=== PATIENT | male | born 1955 | race Caucasian/White ===

== ENCOUNTER 2022-01-19 17:14 | Inpatient (IN) | payer OTHER, SELFPAY ==
[~2022-01-19 17:14] MED LIST: Iopamidol-370 76% 500 ML 1 ML ONE
[2022-01-19 18:24] LABS: Acetaminophen Less than 10.0 mcg/mL (10.0-30.0); Alcohol Less than 10 mg/dL (Less than 10); Lipase 23 U/L (8-78); Salicylate Less than 8.0 mg/dL (15.0-30.0)
[2022-01-19 18:26] LABS: Hemoglobin 9.6 g/dL (14.0-18.0); Mean Corpuscular HGB CONC 31.8 g/dL (32.0-36.0); Mean Corpuscular Hemoglobin 32.9 pg (27.0-31.0); Mean Platelet Volume 10.4 fL (7.4-10.4); Platelet Count 104 thou/uL (130-400); RBC Distribution Width 18.6 % (11.5-14.5); Red Blood Cell (RBC) Count 2.92 mill/uL (4.70-6.10)
[2022-01-19 18:33] LABS: MDiff Complete? YES
[2022-01-19 18:34] LABS: Albumin 1.7 g/dL (3.4-4.8); Anisocytosis SLIGHT = 6-15 cells (100X) (0-5/hpf); Band 8 % (5-11); Lymphocytes 9 % (21-51); Macrocytosis SLIGHT = 6-15 cells (100X) (0-5/hpf); Monocytes 2 % (0-10); Neutrophil 81 % (42-75); Platelet Morphology Comment Appears Decreased; Polychromasia SLIGHT = 2-3 cells (100X) (0-2/hpf)
[2022-01-19 18:35] LABS: Calcium 8.9 mg/dL (7.8-10.44); Chloride 98 mmol/L (98-107); Potassium 4.6 mmol/L (3.5-5.1); Sodium 139 mmol/L (136-145)
[2022-01-19 18:36] LABS: Globulin 9.9 g/dL (2.4-3.5); Glucose 99 mg/dL (80-115); Protein, Total 11.6 g/dL (5.8-8.1)
[2022-01-19 18:37] LABS: Anion Gap 21 mmol/L (10-20); Carbon Dioxide 25 mmol/L (23-31)
[2022-01-19 18:38] LABS: Bilirubin, Total 0.7 mg/dL (0.2-1.2)
[2022-01-19 18:39] LABS: Alkaline Phosphatase 88 U/L (40-110); Calc. Creatinine Clearance 0 mL/min (70-130)
[2022-01-19 18:40] LABS: BUN (Urea Nitrogen) 34 mg/dL (8.4-25.7)
[2022-01-19 18:41] LABS: AST (SGOT) 24 U/L (5-34)
[2022-01-19 18:42] LABS: ALT (SGPT) 11 U/L (8-55)
[2022-01-19 19:02] LABS: CKMB 13.1 ng/mL (0-6.6)
[2022-01-19] MEDS ORDERED: Vancomycin 1 GM/200 ML BAG ONE (19:15)
[2022-01-19] MEDS ORDERED: Cefepime 2 GM VIAL ONE (19:15)
[2022-01-19 19:19] LABS: Bilirubin Negative (Negative); Blood, Urine 1+ (Negative); Clarity Turbid (Clear); Glucose, Urine (Dipstick) Normal (Negative); Ketone, Urine Negative (Negative); Leukocyte Negative Leu/uL (Negative); Mucous/LPF Rare LPF (<2+); Nitrite Negative (Negative); Protein, Urine (Dipstick) 50 mg/dL (Neg-Trace); Renal Epithelial 0-3 HPF (None Seen); Squamous Epithelial None Seen HPF (0-3)
[2022-01-19 19:23] LABS: Amphetamine Not Detected (NotDetected); Barbiturates Screen Not Detected (NotDetected); Benzodiazepine Screen Not Detected (NotDetected); Cocaine Metabolite Screen Not Detected (NotDetected); Methadone Not Detected (NotDetected); Methamphetamine Not Detected (NotDetected); Opiate Screen Not Detected (NotDetected); Oxycodone Screen Not Detected (NotDetected); Phencyclidine (PCP) Not Detected (NotDetected); THC/Cannabinoid Screen Detected (NotDetected); Tricyclic Screen Not Detected (NotDetected)
[2022-01-19 19:30] LABS: Bacteria/HPF 2+ HPF (None Seen)
[2022-01-19 21:06] LABS: Lactic Acid 1.7 mmol/L (0.5-2.2)
[2022-01-20 00:41] VITALS: BMI 16.7
[2022-01-20] MEDS ORDERED: Sodium Chloride 0.9% 1,000 ML IV SCH (02:45)
[2022-01-20] MEDS ORDERED: Ondansetron ODT 4 MG TAB PO PRN (07:34)
[2022-01-20] MEDS ORDERED: Senokot S 8.6-50 MG TAB PO PRN (07:34)
[2022-01-20] MEDS ORDERED: Bisacodyl 5 MG TAB PO PRN (07:34)
[2022-01-20] MEDS ORDERED: Bisacodyl 10 MG SUPP PR PRN (07:34)
[2022-01-20 08:41] LABS: Actual Bicarbonate (HCO3v) 28 mEq/L (22-28); Base Excess 3.2 mEq/L (-2.0 to +3.0); Calcium, Ionized (venous) 1.12 mmol/L (1.16-1.32); Chloride (VBG) 103 mmol/L (98-106); Potassium (VBG) 4.26 mmol/L (3.70-5.30); Sodium 143.2 mmol/L (133-146); pH (venous) 7.44 (7.32-7.43)
[2022-01-20 08:46] LABS: Hemoglobin A1c 5.6 % (4.0-6.0)
[2022-01-20 08:49] LABS: INR-International Normal Ratio 1.5; PTT 43.3 sec (22.9-36.1); Prothrombin Time 18.4 sec (12.0-14.7)
[2022-01-20 08:55] LABS: #Lymphocytes 0.7 thou/uL (1.20-3.40); #Monocytes 0.2 thou/uL (0.11-0.59); %Basophils 0.5 % (0.0-1.0); %Eosinophils 0.1 % (0.0-10.0); %Lymphocytes 13.7 % (21.0-51.0); %Monocytes 3.7 % (0.0-10.0); Anisocytosis SLIGHT = 6-15 cells (100X) (0-5/hpf); Band 4 % (5-11); Hemoglobin 9.5 g/dL (14.0-18.0); Hypochromia SLIGHT = 6-15 cells (100X) (0-5/hpf); Lymphocytes 14 % (21-51); MDiff Complete? YES; Macrocytosis SLIGHT = 6-15 cells (100X) (0-5/hpf); Mean Corpuscular Hemoglobin 32.9 pg (27.0-31.0); Mean Platelet Volume 10.4 fL (7.4-10.4); Monocytes 3 % (0-10); Neutrophil 79 % (42-75); Platelet Count 105 thou/uL (130-400); Platelet Morphology Comment Appears Decreased; Polychromasia SLIGHT = 2-3 cells (100X) (0-2/hpf); RBC Distribution Width 18.4 % (11.5-14.5); Target Cells SLIGHT = 2-5 cells (100X) (0-1/hpf); White Blood Cell (WBC) Count 4.8 thou/uL (4.8-10.8)
[2022-01-20] MEDS ORDERED: Cefepime 2 GM in Sodium Chloride 0.9% 100 ML IVPB SCH (09:00)
[2022-01-20 09:26] LABS: Vitamin B12 719 pg/mL (211-911)
[2022-01-20 09:29] LABS: ALT (SGPT) 10 U/L (8-55); AST (SGOT) 24 U/L (5-34); Albumin 1.7 g/dL (3.4-4.8); Anion Gap 22 mmol/L (10-20); BUN (Urea Nitrogen) 33 mg/dL (8.4-25.7); Calc. Creatinine Clearance 59 mL/min (70-130); Carbon Dioxide 23 mmol/L (23-31); Chloride 100 mmol/L (98-107); Globulin 10.1 g/dL (2.4-3.5); Glucose 71 mg/dL (80-115); Magnesium 1.9 mg/dL (1.6-2.6); Potassium 4.3 mmol/L (3.5-5.1); Protein, Total 11.8 g/dL (5.8-8.1); Sodium 141 mmol/L (136-145); Uric Acid 10.5 mg/dL (3.5-7.2)
[2022-01-20 09:30] LABS: Alkaline Phosphatase 83 U/L (40-110); Bilirubin, Total 0.7 mg/dL (0.2-1.2)
[2022-01-20 11:12] LABS: Syphilis Antibody Nonreactive (Nonreactive); Syphilis Antibody Index 0.02 S/CO (<1.00 Non-Reactive)
[2022-01-20] MEDS: Benzonatate 100 MG CAP PO SCH ×3 (11:24→21:26)
[2022-01-20] MEDS: guaiFENesin ER 600 MG TAB PO SCH ×2 (11:26→21:26)
[2022-01-20] MEDS: Cefepime 2 GM in Sodium Chloride 0.9% 100 ML IVPB SCH ×2 (11:26→21:25)
[2022-01-20] MEDS ORDERED: Iopamidol-370 76% 500 ML 1 ML ONE (12:02)
[2022-01-20] MEDS: Loperamide HCl 2 MG CAP PO PRN (16:41)
[2022-01-20 19:38] LABS: HIV (1/2) Antibody/Antigen Non-Reactive (NonReactive); HIV 1/2 INDEX 0.17 S/CO (<1.00)
[2022-01-20] MEDS: Vancomycin 1 GM in Premix Bag 1 BAG IVPB SCH (21:27)
[2022-01-21 04:15] LABS: #Lymphocytes 0.8 thou/uL (1.20-3.40); #Monocytes 0.2 thou/uL (0.11-0.59); #Neutrophils 3.4 thou/uL (1.40-6.50); %Eosinophils 0.2 % (0.0-10.0); %Lymphocytes 17.3 % (21.0-51.0); %Monocytes 4.5 % (0.0-10.0); Hemoglobin 9.3 g/dL (14.0-18.0); Mean Corpuscular HGB CONC 32.1 g/dL (32.0-36.0); Mean Corpuscular Hemoglobin 33.6 pg (27.0-31.0); Mean Platelet Volume 9.9 fL (7.4-10.4); Platelet Count 98 thou/uL (130-400); RBC Distribution Width 18.2 % (11.5-14.5); Red Blood Cell (RBC) Count 2.77 mill/uL (4.70-6.10); White Blood Cell (WBC) Count 4.3 thou/uL (4.8-10.8)
[2022-01-21 04:34] LABS: Troponin I 0.047 ng/mL (< 0.028)
[2022-01-21 08:09] LABS: Albumin 1.7 g/dL (3.4-4.8)
[2022-01-21 08:10] LABS: Calcium 8.8 mg/dL (7.8-10.44); Chloride 100 mmol/L (98-107); Potassium 4.4 mmol/L (3.5-5.1); Sodium 139 mmol/L (136-145)
[2022-01-21 08:11] LABS: Globulin 10.1 g/dL (2.4-3.5); Glucose 97 mg/dL (80-115); Protein, Total 11.8 g/dL (5.8-8.1); Triglycerides 62 mg/dL (Less than 150)
[2022-01-21 08:13] LABS: Anion Gap 19 mmol/L (10-20); Bilirubin, Total 0.6 mg/dL (0.2-1.2); Carbon Dioxide 24 mmol/L (23-31)
[2022-01-21 08:14] LABS: Alkaline Phosphatase 74 U/L (40-110); Calc. Creatinine Clearance 69 mL/min (70-130)
[2022-01-21 08:15] LABS: BUN (Urea Nitrogen) 29 mg/dL (8.4-25.7)
[2022-01-21 08:16] LABS: AST (SGOT) 39 U/L (5-34); Cholesterol 124 mg/dl (< 200 Desired)
[2022-01-21 08:17] LABS: ALT (SGPT) 13 U/L (8-55); Cardiac Risk 5.2 (Less than 4.5); HDL Cholesterol 24 mg/dL (>60 Neg Risk); LDL Cholesterol, Calculated 88 mg/dL; Magnesium 1.8 mg/dL (1.6-2.6)
[2022-01-21] MEDS: Cefepime 2 GM in Sodium Chloride 0.9% 100 ML IVPB SCH ×2 (13:24→20:56)
[2022-01-21] MEDS: Benzonatate 100 MG CAP PO SCH ×3 (13:25→20:56)
[2022-01-21] MEDS: guaiFENesin ER 600 MG TAB PO SCH ×2 (13:25→20:56)
[2022-01-21 19:06] LABS: Vancomycin, Trough 15.9 ug/mL
[2022-01-21] MEDS: Loperamide HCl 2 MG CAP PO PRN (19:56)
[2022-01-21] MEDS: Vancomycin 1 GM in Premix Bag 1 BAG IVPB SCH (19:56)
[2022-01-21 21:33] LABS: Legionella Urinary Ag Negative (Negative); Strep pneumo Urine Ag NEGATIVE (NEGATIVE)
[2022-01-21 21:38] LABS: Creatinine, Urine 56.69 mg/dL (63-166)
[2022-01-22 05:02] LABS: #Lymphocytes 0.8 thou/uL (1.20-3.40); #Monocytes 0.2 thou/uL (0.11-0.59); #Neutrophils 3.3 thou/uL (1.40-6.50); %Basophils 0.2 % (0.0-1.0); %Eosinophils 0.3 % (0.0-10.0); %Lymphocytes 18.2 % (21.0-51.0); %Monocytes 4.2 % (0.0-10.0); %Neutrophils 77.2 % (42.0-75.0); Anisocytosis SLIGHT = 6-15 cells (100X) (0-5/hpf); Hemoglobin 9.6 g/dL (14.0-18.0); Hypochromia SLIGHT = 6-15 cells (100X) (0-5/hpf); MDiff Complete? YES; Macrocytosis MODERATE=16-30 cells (100X) (0-5/hpf); Mean Corpuscular HGB CONC 31.3 g/dL (32.0-36.0); Mean Corpuscular Hemoglobin 33.1 pg (27.0-31.0); Ovalocytes SLIGHT = 2-5 cells (100X) (0-1/hpf); Platelet Count 78 thou/uL (130-400); Platelet Morphology Comment Appears Decreased; Polychromasia SLIGHT = 2-3 cells (100X) (0-2/hpf); RBC Distribution Width 18.3 % (11.5-14.5); Red Blood Cell (RBC) Count 2.92 mill/uL (4.70-6.10); White Blood Cell (WBC) Count 4.3 thou/uL (4.8-10.8)
[2022-01-22] MEDS: Cefepime 2 GM in Sodium Chloride 0.9% 100 ML IVPB SCH ×2 (09:39→21:35)
[2022-01-22] MEDS: guaiFENesin ER 600 MG TAB PO SCH ×2 (09:39→21:35)
[2022-01-22] MEDS: Benzonatate 100 MG CAP PO SCH ×3 (09:39→21:35)
[2022-01-22 14:16] LABS: BUN (Urea Nitrogen) 25 mg/dL (8.4-25.7); Calc. Creatinine Clearance 61 mL/min (70-130); Carbon Dioxide 23 mmol/L (23-31)
[2022-01-22 14:17] LABS: Bilirubin, Total 0.4 mg/dL (0.2-1.2); Calcium 8.5 mg/dL (7.8-10.44); Glucose 98 mg/dL (80-115)
[2022-01-22 14:18] LABS: ALT (SGPT) Less than 14 U/L (8-55); AST (SGOT) 27 U/L (5-34); Albumin Less than 2.0 g/dL (3.4-4.8); Alkaline Phosphatase 78 U/L (40-110); Magnesium 1.8 mg/dL (1.6-2.6)
[2022-01-22] MEDS: Vancomycin 1 GM in Premix Bag 1 BAG IVPB SCH (18:17)
[2022-01-23 04:53] LABS: #Lymphocytes 0.8 thou/uL (1.20-3.40); #Monocytes 0.2 thou/uL (0.11-0.59); #Neutrophils 2.8 thou/uL (1.40-6.50); %Eosinophils 0.3 % (0.0-10.0); %Lymphocytes 20.4 % (21.0-51.0); %Monocytes 4.2 % (0.0-10.0); %Neutrophils 75.1 % (42.0-75.0); Hemoglobin 9.9 g/dL (14.0-18.0); Mean Corpuscular HGB CONC 30.9 g/dL (32.0-36.0); Mean Platelet Volume 10.6 fL (7.4-10.4); Platelet Count 86 thou/uL (130-400); RBC Distribution Width 18.4 % (11.5-14.5); Red Blood Cell (RBC) Count 3.01 mill/uL (4.70-6.10); White Blood Cell (WBC) Count 3.8 thou/uL (4.8-10.8)
[2022-01-23 09:38] LABS: Carbon Dioxide 26 mmol/L (23-31)
[2022-01-23 09:39] LABS: BUN (Urea Nitrogen) 25 mg/dL (8.4-25.7)
[2022-01-23 09:40] LABS: Calc. Creatinine Clearance 65 mL/min (70-130)
[2022-01-23 09:41] LABS: Bilirubin, Total 0.4 mg/dL (0.2-1.2); Calcium 8.4 mg/dL (7.8-10.44); Glucose 88 mg/dL (80-115); Protein, Total 11.3 g/dL (5.8-8.1)
[2022-01-23 09:42] LABS: Albumin Less than 2.0 g/dL (3.4-4.8)
[2022-01-23 09:43] LABS: Alkaline Phosphatase 70 U/L (40-110)
[2022-01-23 09:44] LABS: ALT (SGPT) Less than 14 U/L (8-55); AST (SGOT) 25 U/L (5-34)
[2022-01-23 09:45] LABS: Magnesium 1.9 mg/dL (1.6-2.6)
[2022-01-23] MEDS: Cefepime 2 GM in Sodium Chloride 0.9% 100 ML IVPB SCH ×2 (10:10→23:22)
[2022-01-23] MEDS: Benzonatate 100 MG CAP PO SCH ×3 (10:10→22:05)
[2022-01-23] MEDS: guaiFENesin ER 600 MG TAB PO SCH ×2 (10:10→22:05)
[2022-01-23] MEDS ORDERED: Sodium Bicarbonate 2.5 MEQ/5 ML VIAL ONE (13:02)
[2022-01-23] MEDS ORDERED: Fentanyl 100 MCG/2 ML VIAL ONE (13:03)
[2022-01-23 16:46] LABS: Campy jejuni + coli by PCR Negative (Negative); STEC Shiga Toxin 1+2 Negative (Negative); Salmonella spp. by PCR Negative (Negative); Shigella spp + EIEC by PCR Negative (Negative)
[2022-01-23 18:21] LABS: Vancomycin, Trough 21.1 ug/mL
[2022-01-23] MEDS: Vancomycin HCl 750 MG in Sodium Chloride 0.9% 250 ML 250 ML IVPB SCH (22:13)
[2022-01-23] MEDS: Vancomycin 1 GM in Premix Bag 1 BAG IVPB SCH (22:25)
[2022-01-24] MEDS: Loperamide HCl 2 MG CAP PO PRN (00:51)
[2022-01-24 04:32] LABS: #Lymphocytes 0.5 thou/uL (1.20-3.40); #Monocytes 0.2 thou/uL (0.11-0.59); #Neutrophils 2.5 thou/uL (1.40-6.50); %Eosinophils 0.2 % (0.0-10.0); %Lymphocytes 16.5 % (21.0-51.0); %Monocytes 5.1 % (0.0-10.0); %Neutrophils 78.2 % (42.0-75.0); Hemoglobin 9.5 g/dL (14.0-18.0); Mean Corpuscular HGB CONC 31.7 g/dL (32.0-36.0); Mean Corpuscular Hemoglobin 33.1 pg (27.0-31.0); Mean Platelet Volume 10.7 fL (7.4-10.4); Platelet Count 85 thou/uL (130-400); RBC Distribution Width 18.3 % (11.5-14.5); Red Blood Cell (RBC) Count 2.88 mill/uL (4.70-6.10); White Blood Cell (WBC) Count 3.1 thou/uL (4.8-10.8)
[2022-01-24 06:07] LABS: ALT (SGPT) 11 U/L (8-55); AST (SGOT) 31 U/L (5-34); Albumin 1.5 g/dL (3.4-4.8); Alkaline Phosphatase 66 U/L (40-110); BUN (Urea Nitrogen) 27 mg/dL (8.4-25.7); Bilirubin, Total 0.4 mg/dL (0.2-1.2); Calc. Creatinine Clearance 69 mL/min (70-130); Calcium 8.3 mg/dL (7.8-10.44); Carbon Dioxide 21 mmol/L (23-31); Chloride 101 mmol/L (98-107); Globulin 9.7 g/dL (2.4-3.5); Glucose 88 mg/dL (80-115); Magnesium 1.9 mg/dL (1.6-2.6); Potassium 3.9 mmol/L (3.5-5.1); Protein, Total 11.2 g/dL (5.8-8.1); Sodium 137 mmol/L (136-145)
[2022-01-24 06:15] LABS: Anion Gap 19 mmol/L (10-20)
[2022-01-24] MEDS: Cefepime 2 GM in Sodium Chloride 0.9% 100 ML IVPB SCH ×2 (10:10→21:24)
[2022-01-24] MEDS: Benzonatate 100 MG CAP PO SCH ×3 (10:11→21:24)
[2022-01-24] MEDS: guaiFENesin ER 600 MG TAB PO SCH ×2 (10:11→21:24)
[2022-01-24 18:36] LABS: Mycoplasma pneumoniae IgG AB Less than 100 U/mL (0-99); Mycoplasma pneumoniae IgM AB Less than 770 U/mL (0-769)
[2022-01-24] MEDS: Acetaminophen 325 MG TAB PO PRN (21:24)
[2022-01-24] MEDS: Vancomycin HCl 750 MG in Sodium Chloride 0.9% 250 ML 250 ML IVPB SCH (22:15)
[2022-01-24 23:37] LABS: A. flavus Negative (Neg:<1:1); A. fumigatus Negative (Neg:<1:1); A. niger Negative (Neg:<1:1)
[2022-01-25] MEDS: Acetaminophen 325 MG TAB PO PRN (05:13)
[2022-01-25 05:22] LABS: #Lymphocytes 0.6 thou/uL (1.20-3.40); #Monocytes 0.3 thou/uL (0.11-0.59); #Neutrophils 3.3 thou/uL (1.40-6.50); %Eosinophils 0.5 % (0.0-10.0); %Lymphocytes 14.4 % (21.0-51.0); %Neutrophils 79.1 % (42.0-75.0); Hemoglobin 8.7 g/dL (14.0-18.0); Mean Corpuscular HGB CONC 31.4 g/dL (32.0-36.0); Mean Corpuscular Hemoglobin 33.4 pg (27.0-31.0); Mean Platelet Volume 10.2 fL (7.4-10.4); Platelet Count 91 thou/uL (130-400); RBC Distribution Width 18.5 % (11.5-14.5); White Blood Cell (WBC) Count 4.1 thou/uL (4.8-10.8)
[2022-01-25 05:56] LABS: ALT (SGPT) 12 U/L (8-55); AST (SGOT) 30 U/L (5-34); Albumin 1.6 g/dL (3.4-4.8); Alkaline Phosphatase 66 U/L (40-110); Anion Gap 16 mmol/L (10-20); BUN (Urea Nitrogen) 29 mg/dL (8.4-25.7); Bilirubin, Total 0.5 mg/dL (0.2-1.2); Calc. Creatinine Clearance 68 mL/min (70-130); Calcium 8.3 mg/dL (7.8-10.44); Carbon Dioxide 25 mmol/L (23-31); Chloride 99 mmol/L (98-107); Estimated GFR 98; Globulin 9.7 g/dL (2.4-3.5); Glucose 82 mg/dL (80-115); Magnesium 1.9 mg/dL (1.6-2.6); Potassium 3.5 mmol/L (3.5-5.1); Protein, Total 11.3 g/dL (5.8-8.1); Sodium 136 mmol/L (136-145)
[2022-01-25] MEDS: Cefepime 2 GM in Sodium Chloride 0.9% 100 ML IVPB SCH ×2 (10:07→22:23)
[2022-01-25] MEDS: guaiFENesin ER 600 MG TAB PO SCH ×2 (10:07→22:22)
[2022-01-25] MEDS: Benzonatate 100 MG CAP PO SCH ×3 (10:07→22:23)
[2022-01-25 12:48] LABS: Immunoglob - A (Total IgA) Greater than 6300.00 mg/dL (101-645)
[2022-01-25] MEDS ORDERED: traZODone HCl 50 MG TAB PO PRN (18:35)
[2022-01-25] MEDS ORDERED: HYDROcodone/Acetaminophen 5/325 mg Tablet PO SCH (21:00)
[2022-01-25 22:10] LABS: Vancomycin, Trough 21.3 ug/mL
[2022-01-25] MEDS: Vancomycin HCl 750 MG in Sodium Chloride 0.9% 250 ML 250 ML IVPB SCH (23:04)
[2022-01-26 05:29] LABS: #Lymphocytes 0.6 thou/uL (1.20-3.40); #Monocytes 0.2 thou/uL (0.11-0.59); #Neutrophils 3.1 thou/uL (1.40-6.50); %Basophils 0.1 % (0.0-1.0); %Eosinophils 0.5 % (0.0-10.0); %Lymphocytes 14.9 % (21.0-51.0); %Neutrophils 79.5 % (42.0-75.0); Hemoglobin 8.5 g/dL (14.0-18.0); Mean Corpuscular HGB CONC 30.9 g/dL (32.0-36.0); Mean Platelet Volume 10.2 fL (7.4-10.4); Platelet Count 93 thou/uL (130-400); RBC Distribution Width 18.5 % (11.5-14.5); Red Blood Cell (RBC) Count 2.58 mill/uL (4.70-6.10); White Blood Cell (WBC) Count 3.9 thou/uL (4.8-10.8)
[2022-01-26 05:53] LABS: ALT (SGPT) 11 U/L (8-55); AST (SGOT) 31 U/L (5-34); Albumin 1.6 g/dL (3.4-4.8); Alkaline Phosphatase 63 U/L (40-110); Anion Gap 14 mmol/L (10-20); BUN (Urea Nitrogen) 32 mg/dL (8.4-25.7); Bilirubin, Total 0.4 mg/dL (0.2-1.2); Calc. Creatinine Clearance 68 mL/min (70-130); Calcium 8.2 mg/dL (7.8-10.44); Carbon Dioxide 26 mmol/L (23-31); Chloride 102 mmol/L (98-107); Estimated GFR 98; Globulin 9.5 g/dL (2.4-3.5); Glucose 81 mg/dL (80-115); Magnesium 2.2 mg/dL (1.6-2.6); Potassium 3.7 mmol/L (3.5-5.1); Protein, Total 11.1 g/dL (5.8-8.1); Sodium 138 mmol/L (136-145)
[2022-01-26] MEDS ORDERED: Dexamethasone 4 MG TAB PO SCH (08:00)
[2022-01-26] MEDS: Dexamethasone 4 MG TAB PO SCH (08:36)
[2022-01-26] MEDS: guaiFENesin ER 600 MG TAB PO SCH ×2 (08:37→21:36)
[2022-01-26] MEDS: Benzonatate 100 MG CAP PO SCH ×3 (08:38→21:36)
[2022-01-26] MEDS: Allopurinol 300 MG TAB PO SCH (08:39)
[2022-01-26] MEDS: Cefepime 2 GM in Sodium Chloride 0.9% 100 ML IVPB SCH ×2 (08:43→21:36)
[2022-01-26] MEDS: valACYclovir 500 MG TAB PO SCH (08:55)
[2022-01-26] MEDS ORDERED: Sodium Bicarbonate 2.5 MEQ/5 ML VIAL ONE (12:04)
[2022-01-26] MEDS ORDERED: Midazolam HCl 2 mg/2 ml Vial ONE (12:04)
[2022-01-26] MEDS ORDERED: Fentanyl 100 MCG/2 ML VIAL ONE (12:04)
[2022-01-26] MEDS ORDERED: valACYclovir 500 MG TAB PO SCH (13:00)
[2022-01-26] MEDS ORDERED: SODIUM CHLORIDE 0.9% IVPB SCH ×3 (13:00→14:30)
[2022-01-26] MEDS ORDERED: CYCLOPHOSPHAMIDE IVPB SCH ×3 (13:00→14:30)
[2022-01-26 14:37] LABS: A/G Ratio 0.3 (0.7-1.7); Albumin 2.7 g/dL (2.9-4.4); Alpha 1 0.3 g/dL (0.0-0.4); Alpha 2 0.5 g/dL (0.4-1.0); Beta 1.5 g/dL (0.7-1.3); Globulin, Total 8.2 g/dL (2.2-3.9); M-Spike 4.8 g/dL (Not Observed); Protein Electrophoresis Intrp Note: (.)
[2022-01-26] MEDS: Vancomycin HCl 750 MG in Sodium Chloride 0.9% 250 ML 250 ML IVPB SCH (21:36)
[2022-01-27 06:30] LABS: Anisocytosis MODERATE=16-30 cells (100X) (0-5/hpf); Band 21 % (5-11); Eosinophils 2 % (0-10); Hemoglobin 9.4 g/dL (14.0-18.0); Hypochromia SLIGHT = 6-15 cells (100X) (0-5/hpf); Lymphocytes 10 % (21-51); MDiff Complete? YES; Mean Corpuscular HGB CONC 29.1 g/dL (32.0-36.0); Mean Corpuscular Hemoglobin 30.7 pg (27.0-31.0); Mean Platelet Volume 10.3 fL (7.4-10.4); Monocytes 2 % (0-10); Neutrophil 65 % (42-75); Platelet Count 111 thou/uL (130-400); Platelet Morphology Comment Appears Decreased; RBC Distribution Width 18.8 % (11.5-14.5); Red Blood Cell (RBC) Count 3.06 mill/uL (4.70-6.10); White Blood Cell (WBC) Count 4.1 thou/uL (4.8-10.8)
[2022-01-27 07:15] LABS: Magnesium 2.1 mg/dL (1.6-2.6); Phosphorus 2.6 mg/dL (2.3-4.7)
[2022-01-27 07:16] LABS: Uric Acid 5.9 mg/dL (3.5-7.2)
[2022-01-27] MEDS ORDERED: ADMIXTURE FEE CHEMO IVP SCH ×3 (08:00→13:15)
[2022-01-27] MEDS ORDERED: BORTEZOMIB IVP SCH ×3 (08:00→13:15)
[2022-01-27] MEDS: valACYclovir 500 MG TAB PO SCH (08:53)
[2022-01-27] MEDS: Allopurinol 300 MG TAB PO SCH (08:53)
[2022-01-27] MEDS: Benzonatate 100 MG CAP PO SCH ×3 (08:53→22:32)
[2022-01-27] MEDS: Cefepime 2 GM in Sodium Chloride 0.9% 100 ML IVPB SCH (08:54)
[2022-01-27] MEDS: guaiFENesin ER 600 MG TAB PO SCH ×2 (08:54→22:32)
[2022-01-27] MEDS: Dexamethasone 4 MG TAB PO SCH (08:54)
[2022-01-27 09:24] LABS: Calc. Creatinine Clearance 63 mL/min (70-130); Estimated GFR 96
[2022-01-27 09:25] LABS: Carbon Dioxide Less than 16 mmol/L (23-31); Potassium 3.6 mmol/L (3.5-5.1)
[2022-01-27 09:26] LABS: BUN (Urea Nitrogen) 28 mg/dL (8.4-25.7); Bilirubin, Total Less than 0.4 mg/dL (0.2-1.2); Glucose 110 mg/dL (80-115); Protein, Total 12.3 g/dL (5.8-8.1)
[2022-01-27 09:27] LABS: ALT (SGPT) Less than 14 U/L (8-55); AST (SGOT) 33 U/L (5-34); Alkaline Phosphatase 69 U/L (40-110)
[2022-01-27 09:28] LABS: Albumin Less than 2.0 g/dL (3.4-4.8)
[2022-01-27] MEDS ORDERED: ADMIXTURE FEE CHEMO SC SCH (11:15)
[2022-01-27] MEDS ORDERED: BORTEZOMIB SC SCH (11:15)
[2022-01-27 13:16] LABS: Kappa Lambda Light Chain Ratio 0.04 (0.26-1.65); Kappa Light Chains 38.8 mg/L (3.3-19.4); Lambda Light Chain 881.4 mg/L (5.7-26.3)
[2022-01-27 13:16] LABS: IgA - Total IgA (Sendout) Greater than 6400 mg/dL (61-437); Immunoglobulin - G (Sendout) 644 mg/dL (603-1613); Immunoglobulin - M (Sendout) 117 mg/dL (20-172)
[2022-01-27 21:29] LABS: Vancomycin, Trough 23.5 ug/mL
[2022-01-27] MEDS: Vancomycin HCl 750 MG in Sodium Chloride 0.9% 250 ML 250 ML IVPB SCH (23:01)
[2022-01-27] MEDS: Vancomycin HCl 500 MG in Sodium Chloride 0.9% 100 ML IVPB SCH (23:36)
[2022-01-28] MEDS: valACYclovir 500 MG TAB PO SCH (08:17)
[2022-01-28] MEDS: Allopurinol 300 MG TAB PO SCH (08:17)
[2022-01-28] MEDS: Benzonatate 100 MG CAP PO SCH ×3 (08:17→19:53)
[2022-01-28] MEDS: guaiFENesin ER 600 MG TAB PO SCH ×2 (08:17→19:53)
[2022-01-28] MEDS: Dexamethasone 4 MG TAB PO SCH (08:19)
[2022-01-28 10:22] LABS: #Eosinphils 0.1 thou/uL (0.0-0.7); #Lymphocytes 0.3 thou/uL (1.20-3.40); #Monocytes 0.2 thou/uL (0.11-0.59); #Neutrophils 6.3 thou/uL (1.40-6.50); %Eosinophils 0.8 % (0.0-10.0); %Lymphocytes 4.2 % (21.0-51.0); %Monocytes 2.4 % (0.0-10.0); %Neutrophils 92.7 % (42.0-75.0); Hemoglobin 9.1 g/dL (14.0-18.0); Mean Corpuscular HGB CONC 32.4 g/dL (32.0-36.0); Mean Corpuscular Hemoglobin 34.2 pg (27.0-31.0); Mean Platelet Volume 9.9 fL (7.4-10.4); Platelet Count 85 thou/uL (130-400); RBC Distribution Width 18.8 % (11.5-14.5); Red Blood Cell (RBC) Count 2.65 mill/uL (4.70-6.10); White Blood Cell (WBC) Count 6.7 thou/uL (4.8-10.8)
[2022-01-28 11:16] LABS: Albumin 1.8 g/dL (3.4-4.8)
[2022-01-28 11:17] LABS: Chloride 99 mmol/L (98-107); Potassium 4.4 mmol/L (3.5-5.1); Sodium 134 mmol/L (136-145)
[2022-01-28 11:18] LABS: Calcium 8.6 mg/dL (7.8-10.44); Glucose 85 mg/dL (80-115)
[2022-01-28 11:19] LABS: Globulin 10.2 g/dL (2.4-3.5)
[2022-01-28 11:20] LABS: Anion Gap 19 mmol/L (10-20); Bilirubin, Total 0.5 mg/dL (0.2-1.2); Carbon Dioxide 20 mmol/L (23-31)
[2022-01-28 11:21] LABS: Alkaline Phosphatase 63 U/L (40-110); Phosphorus 3.1 mg/dL (2.3-4.7)
[2022-01-28 11:22] LABS: Calc. Creatinine Clearance 61 mL/min (70-130); Estimated GFR 95
[2022-01-28 11:23] LABS: AST (SGOT) 35 U/L (5-34); BUN (Urea Nitrogen) 31 mg/dL (8.4-25.7)
[2022-01-28 11:24] LABS: ALT (SGPT) 14 U/L (8-55); Uric Acid 5.4 mg/dL (3.5-7.2)
[2022-01-28 14:26] LABS: INR-International Normal Ratio 1.7; Prothrombin Time 20.2 sec (12.0-14.7)
[2022-01-28] MEDS: Loperamide HCl 2 MG CAP PO PRN ×2 (18:06→19:53)
[2022-01-28] MEDS: Vancomycin HCl 500 MG in Sodium Chloride 0.9% 100 ML IVPB SCH (23:48)
[2022-01-29] MEDS: Loperamide HCl 2 MG CAP PO PRN ×2 (04:15→05:05)
[2022-01-29 06:14] LABS: #Lymphocytes 0.4 thou/uL (1.20-3.40); #Monocytes 0.2 thou/uL (0.11-0.59); #Neutrophils 5.5 thou/uL (1.40-6.50); %Eosinophils 0.1 % (0.0-10.0); %Lymphocytes 6.3 % (21.0-51.0); %Monocytes 2.5 % (0.0-10.0); %Neutrophils 91.1 % (42.0-75.0); Hemoglobin 8.1 g/dL (14.0-18.0); Mean Corpuscular HGB CONC 32.4 g/dL (32.0-36.0); Mean Corpuscular Hemoglobin 34.1 pg (27.0-31.0); Mean Platelet Volume 9.9 fL (7.4-10.4); Platelet Count 93 thou/uL (130-400); RBC Distribution Width 18.5 % (11.5-14.5); Red Blood Cell (RBC) Count 2.36 mill/uL (4.70-6.10)
[2022-01-29 06:15] LABS: Anion Gap 16 mmol/L (10-20); BUN (Urea Nitrogen) 34 mg/dL (8.4-25.7); Calc. Creatinine Clearance 64 mL/min (70-130); Carbon Dioxide 23 mmol/L (23-31); Chloride 101 mmol/L (98-107); Potassium 3.7 mmol/L (3.5-5.1); Sodium 136 mmol/L (136-145)
[2022-01-29 06:16] LABS: ALT (SGPT) 14 U/L (8-55); AST (SGOT) 37 U/L (5-34); Albumin 1.6 g/dL (3.4-4.8); Alkaline Phosphatase 59 U/L (40-110); Bilirubin, Total 0.5 mg/dL (0.2-1.2); Calcium 8.6 mg/dL (7.8-10.44); Estimated GFR 97; Globulin 9.7 g/dL (2.4-3.5); Glucose 98 mg/dL (80-115); Phosphorus 3.7 mg/dL (2.3-4.7); Protein, Total 11.3 g/dL (5.8-8.1); Uric Acid 5.8 mg/dL (3.5-7.2)
[2022-01-29] MEDS ORDERED: Lorazepam 2 MG/ML VIAL SLOW IVP PRN (06:24)
[2022-01-29] MEDS: guaiFENesin ER 600 MG TAB PO SCH ×3 (11:19→21:12)
[2022-01-29] MEDS: valACYclovir 500 MG TAB PO SCH ×2 (11:19→18:26)
[2022-01-29] MEDS: Allopurinol 300 MG TAB PO SCH ×2 (11:20→19:05)
[2022-01-29] MEDS: Benzonatate 100 MG CAP PO SCH ×4 (11:20→21:12)
[2022-01-29] MEDS: Dexamethasone 4 MG TAB PO SCH ×2 (11:22→19:03)
[2022-01-29] MEDS: Diphenoxylate HCl/Atropine Tablet PO SCH ×2 (12:06→16:28)
[2022-01-29] MEDS ORDERED: Phytonadione 5 MG TAB PO SCH (15:15)
[2022-01-29] MEDS ORDERED: Phytonadione 10 MG/ML AMP SLOW IVP SCH (17:00)
[2022-01-29] MEDS: Morphine 2 MG/ML VIAL SLOW IVP PRN (20:54)
[2022-01-29 23:09] LABS: Vancomycin, Trough 20.3 ug/mL
[2022-01-30] MEDS: Vancomycin HCl 500 MG in Sodium Chloride 0.9% 100 ML IVPB SCH (00:09)
[2022-01-30 05:48] LABS: #Lymphocytes 0.5 thou/uL (1.20-3.40); #Monocytes 0.3 thou/uL (0.11-0.59); #Neutrophils 6.1 thou/uL (1.40-6.50); %Basophils 0.4 % (0.0-1.0); %Monocytes 3.6 % (0.0-10.0); Hemoglobin 9.8 g/dL (14.0-18.0); Mean Corpuscular HGB CONC 30.8 g/dL (32.0-36.0); Mean Corpuscular Hemoglobin 33.2 pg (27.0-31.0); Mean Platelet Volume 9.8 fL (7.4-10.4); Platelet Count 112 thou/uL (130-400); RBC Distribution Width 18.8 % (11.5-14.5); Red Blood Cell (RBC) Count 2.95 mill/uL (4.70-6.10); White Blood Cell (WBC) Count 6.8 thou/uL (4.8-10.8)
[2022-01-30 05:54] LABS: ALT (SGPT) 13 U/L (8-55); AST (SGOT) 34 U/L (5-34); Albumin 1.6 g/dL (3.4-4.8); Alkaline Phosphatase 58 U/L (40-110); Anion Gap 15 mmol/L (10-20); BUN (Urea Nitrogen) 39 mg/dL (8.4-25.7); Bilirubin, Total 0.7 mg/dL (0.2-1.2); Calc. Creatinine Clearance 63 mL/min (70-130); Calcium 8.8 mg/dL (7.8-10.44); Carbon Dioxide 26 mmol/L (23-31); Chloride 102 mmol/L (98-107); Estimated GFR 96; Globulin 9.2 g/dL (2.4-3.5); Glucose 68 mg/dL (80-115); Phosphorus 3.6 mg/dL (2.3-4.7); Potassium 4.5 mmol/L (3.5-5.1); Protein, Total 10.8 g/dL (5.8-8.1); Sodium 138 mmol/L (136-145); Uric Acid 7.1 mg/dL (3.5-7.2)
[2022-01-30] MEDS: Dextrose 10% in Water 1,000 ML IV SCH (07:15)
[2022-01-30] MEDS: guaiFENesin ER 600 MG TAB PO SCH ×3 (09:37→21:05)
[2022-01-30] MEDS: Benzonatate 100 MG CAP PO SCH ×4 (09:37→21:05)
[2022-01-30] MEDS: Dexamethasone 4 MG TAB PO SCH ×2 (09:37→10:19)
[2022-01-30] MEDS: Allopurinol 300 MG TAB PO SCH ×2 (09:37→10:19)
[2022-01-30] MEDS: valACYclovir 500 MG TAB PO SCH ×2 (09:37→10:19)
[2022-01-30] MEDS ORDERED: Phytonadione 10 MG/ML AMP SLOW IVP SCH (10:15)
[2022-01-31] MEDS: Vancomycin HCl 500 MG in Sodium Chloride 0.9% 100 ML IVPB SCH (00:36)
[2022-01-31] MEDS: Dextrose 10% in Water 1,000 ML IV SCH (04:25)
[2022-01-31 05:55] LABS: ALT (SGPT) 12 U/L (8-55); AST (SGOT) 30 U/L (5-34); Albumin 1.5 g/dL (3.4-4.8); Alkaline Phosphatase 52 U/L (40-110); Anion Gap 15 mmol/L (10-20); BUN (Urea Nitrogen) 42 mg/dL (8.4-25.7); Bilirubin, Total 0.7 mg/dL (0.2-1.2); Calc. Creatinine Clearance 66 mL/min (70-130); Calcium 8.6 mg/dL (7.8-10.44); Carbon Dioxide 25 mmol/L (23-31); Chloride 102 mmol/L (98-107); Estimated GFR 97; Globulin 8.4 g/dL (2.4-3.5); Glucose 100 mg/dL (80-115); Phosphorus 3.1 mg/dL (2.3-4.7); Potassium 4.5 mmol/L (3.5-5.1); Protein, Total 9.9 g/dL (5.8-8.1); Sodium 137 mmol/L (136-145); Uric Acid 7.1 mg/dL (3.5-7.2)
[2022-01-31 06:19] LABS: #Lymphocytes 0.4 thou/uL (1.20-3.40); #Monocytes 0.2 thou/uL (0.11-0.59); #Neutrophils 4.5 thou/uL (1.40-6.50); %Eosinophils 0.2 % (0.0-10.0); %Lymphocytes 8.2 % (21.0-51.0); %Monocytes 3.5 % (0.0-10.0); Hemoglobin 9.7 g/dL (14.0-18.0); Mean Corpuscular HGB CONC 33.6 g/dL (32.0-36.0); Mean Corpuscular Hemoglobin 35.3 pg (27.0-31.0); Mean Platelet Volume 9.3 fL (7.4-10.4); Platelet Count 130 thou/uL (130-400); RBC Distribution Width 18.4 % (11.5-14.5); Red Blood Cell (RBC) Count 2.74 mill/uL (4.70-6.10); White Blood Cell (WBC) Count 5.1 thou/uL (4.8-10.8)
[2022-01-31 06:21] LABS: RBC Morphology Normal
[2022-01-31] MEDS: Dexamethasone 4 MG TAB PO SCH (09:06)
[2022-01-31] MEDS: valACYclovir 500 MG TAB PO SCH (09:13)
[2022-01-31] MEDS: Benzonatate 100 MG CAP PO SCH ×3 (09:13→21:53)
[2022-01-31] MEDS: Allopurinol 300 MG TAB PO SCH (09:13)
[2022-01-31] MEDS: guaiFENesin ER 600 MG TAB PO SCH ×2 (09:13→21:53)
[2022-01-31] MEDS: Acetaminophen 325 MG TAB PO PRN (14:16)
[2022-01-31 16:37] LABS: Albumin, PEP 24hr Ur 44.7 % (NOT ESTAB.); Alpha-1-Globulin, PEP 24h Ur 0.9 % (NOT ESTAB.); Alpha-2-Globulin, PEP 24h Ur 4.1 % (NOT ESTAB.); Beta Globulin, PEP 24h Ur 7.7 % (NOT ESTAB.); Gamma Globulin, PEP 24h Ur 42.8 % (NOT ESTAB.); M-Spike, mg/24hr PEP Ur 449.5 mg/24 hr (Not Observed); M-Spike,% PEP 24hr Ur 35.7 % (Not Observed); Protein, Urine 139.9 mg/dL (Not Estab.)
[2022-01-31] MEDS: Morphine 2 MG/ML VIAL SLOW IVP PRN (19:49)
[2022-02-01] MEDS: Dextrose 10% in Water 1,000 ML IV SCH ×2 (00:38→18:08)
[2022-02-01] MEDS: Morphine 2 MG/ML VIAL SLOW IVP PRN ×2 (00:56→10:21)
[2022-02-01] MEDS: valACYclovir 500 MG TAB PO SCH (08:52)
[2022-02-01] MEDS: guaiFENesin ER 600 MG TAB PO SCH ×2 (08:52→20:28)
[2022-02-01] MEDS: Benzonatate 100 MG CAP PO SCH ×3 (08:52→20:28)
[2022-02-01] MEDS: Allopurinol 300 MG TAB PO SCH (08:52)
[2022-02-01 09:34] LABS: #Lymphocytes 0.6 thou/uL (1.20-3.40); #Monocytes 0.2 thou/uL (0.11-0.59); #Neutrophils 6.1 thou/uL (1.40-6.50); %Basophils 0.5 % (0.0-1.0); %Eosinophils 0.1 % (0.0-10.0); %Lymphocytes 8.5 % (21.0-51.0); %Monocytes 2.5 % (0.0-10.0); %Neutrophils 88.5 % (42.0-75.0); Hemoglobin 8.9 g/dL (14.0-18.0); Mean Corpuscular HGB CONC 31.8 g/dL (32.0-36.0); Mean Corpuscular Hemoglobin 33.4 pg (27.0-31.0); Mean Platelet Volume 8.9 fL (7.4-10.4); Platelet Count 142 thou/uL (130-400); RBC Distribution Width 18.1 % (11.5-14.5); Red Blood Cell (RBC) Count 2.66 mill/uL (4.70-6.10); White Blood Cell (WBC) Count 6.8 thou/uL (4.8-10.8)
[2022-02-01 09:57] LABS: ALT (SGPT) 14 U/L (8-55); AST (SGOT) 33 U/L (5-34); Albumin 1.8 g/dL (3.4-4.8); Alkaline Phosphatase 60 U/L (40-110); Anion Gap 15 mmol/L (10-20); BUN (Urea Nitrogen) 44 mg/dL (8.4-25.7); Bilirubin, Total 0.7 mg/dL (0.2-1.2); Calc. Creatinine Clearance 64 mL/min (70-130); Calcium 8.8 mg/dL (7.8-10.44); Carbon Dioxide 27 mmol/L (23-31); Chloride 98 mmol/L (98-107); Estimated GFR 97; Globulin 8.9 g/dL (2.4-3.5); Glucose 122 mg/dL (80-115); Phosphorus 3.2 mg/dL (2.3-4.7); Potassium 4.7 mmol/L (3.5-5.1); Protein, Total 10.7 g/dL (5.8-8.1); Sodium 135 mmol/L (136-145); Uric Acid 7.4 mg/dL (3.5-7.2)
[2022-02-01] MEDS: Dexamethasone 4 MG TAB PO SCH (10:13)
[2022-02-01 14:57] LABS: Factor VIII Test 196.7 % ACTIVE (56-157)
[2022-02-02] MEDS: Morphine 2 MG/ML VIAL SLOW IVP PRN ×2 (01:09→11:36)
[2022-02-02 05:22] LABS: ALT (SGPT) 14 U/L (8-55); AST (SGOT) 32 U/L (5-34); Albumin 1.7 g/dL (3.4-4.8); Alkaline Phosphatase 58 U/L (40-110); Anion Gap 12 mmol/L (10-20); BUN (Urea Nitrogen) 38 mg/dL (8.4-25.7); Bilirubin, Total 0.5 mg/dL (0.2-1.2); Calc. Creatinine Clearance 72 mL/min (70-130); Calcium 8.5 mg/dL (7.8-10.44); Carbon Dioxide 27 mmol/L (23-31); Chloride 97 mmol/L (98-107); Estimated GFR 100; Globulin 8.5 g/dL (2.4-3.5); Glucose 128 mg/dL (80-115); Phosphorus 3.1 mg/dL (2.3-4.7); Potassium 4.8 mmol/L (3.5-5.1); Protein, Total 10.2 g/dL (5.8-8.1); Sodium 131 mmol/L (136-145); Uric Acid 5.9 mg/dL (3.5-7.2)
[2022-02-02 05:36] LABS: #Lymphocytes 0.6 thou/uL (1.20-3.40); #Monocytes 0.1 thou/uL (0.11-0.59); #Neutrophils 6.3 thou/uL (1.40-6.50); %Basophils 0.2 % (0.0-1.0); %Eosinophils 0.2 % (0.0-10.0); %Lymphocytes 7.9 % (21.0-51.0); %Monocytes 1.9 % (0.0-10.0); %Neutrophils 89.9 % (42.0-75.0); Anisocytosis SLIGHT = 6-15 cells (100X) (0-5/hpf); Hemoglobin 8.2 g/dL (14.0-18.0); MDiff Complete? YES; Mean Corpuscular HGB CONC 32.4 g/dL (32.0-36.0); Mean Corpuscular Hemoglobin 33.8 pg (27.0-31.0); Platelet Count 126 thou/uL (130-400); RBC Distribution Width 18.3 % (11.5-14.5); Red Blood Cell (RBC) Count 2.44 mill/uL (4.70-6.10)
[2022-02-02] MEDS: Dextrose 10% in Water 1,000 ML IV SCH (09:20)
[2022-02-02] MEDS: Allopurinol 300 MG TAB PO SCH ×2 (09:23→11:36)
[2022-02-02] MEDS: Benzonatate 100 MG CAP PO SCH ×4 (09:23→21:30)
[2022-02-02] MEDS: valACYclovir 500 MG TAB PO SCH ×2 (09:23→11:37)
[2022-02-02] MEDS: Dexamethasone 4 MG TAB PO SCH ×2 (09:23→11:36)
[2022-02-02] MEDS: guaiFENesin ER 600 MG TAB PO SCH ×3 (09:23→21:30)
[2022-02-03] MEDS: Dextrose 10% in Water 1,000 ML IV SCH ×3 (00:18→15:54)
[2022-02-03 05:31] LABS: Band 7 % (5-11); Hemoglobin 8.3 g/dL (14.0-18.0); Hypochromia SLIGHT = 6-15 cells (100X) (0-5/hpf); Lymphocytes 6 % (21-51); MDiff Complete? YES; Macrocytosis SLIGHT = 6-15 cells (100X) (0-5/hpf); Mean Corpuscular HGB CONC 31.9 g/dL (32.0-36.0); Mean Corpuscular Hemoglobin 33.9 pg (27.0-31.0); Monocytes 2 % (0-10); Neutrophil 84 % (42-75); Platelet Count 122 thou/uL (130-400); Platelet Morphology Comment Appears Adequate; RBC Distribution Width 18.7 % (11.5-14.5); Reactive Lymphocytes 1 % (0-10); Red Blood Cell (RBC) Count 2.45 mill/uL (4.70-6.10); White Blood Cell (WBC) Count 6.2 thou/uL (4.8-10.8)
[2022-02-03 06:11] LABS: ALT (SGPT) 18 U/L (8-55); AST (SGOT) 37 U/L (5-34); Albumin 1.6 g/dL (3.4-4.8); Alkaline Phosphatase 60 U/L (40-110); Anion Gap 15 mmol/L (10-20); BUN (Urea Nitrogen) 31 mg/dL (8.4-25.7); Bilirubin, Total 0.6 mg/dL (0.2-1.2); Calc. Creatinine Clearance 79 mL/min (70-130); Calcium 8.6 mg/dL (7.8-10.44); Carbon Dioxide 26 mmol/L (23-31); Chloride 94 mmol/L (98-107); Estimated GFR 103; Globulin 8.9 g/dL (2.4-3.5); Glucose 108 mg/dL (80-115); Phosphorus 2.9 mg/dL (2.3-4.7); Potassium 4.9 mmol/L (3.5-5.1); Protein, Total 10.5 g/dL (5.8-8.1); Sodium 130 mmol/L (136-145)
[2022-02-03] MEDS ORDERED: SODIUM CHLORIDE 0.9% IVPB SCH (09:00)
[2022-02-03] MEDS ORDERED: BORTEZOMIB SC SCH (09:00)
[2022-02-03] MEDS ORDERED: CYCLOPHOSPHAMIDE IVPB SCH (09:00)
[2022-02-03] MEDS ORDERED: ADMIXTURE FEE CHEMO SC SCH (09:00)
[2022-02-03] MEDS ORDERED: Dexamethasone Sod Phosphate 40 MG in Sodium Chloride 0.9% 50 ML IVPB SCH (09:00)
[2022-02-03] MEDS: Benzonatate 100 MG CAP PO SCH ×3 (10:00→21:10)
[2022-02-03] MEDS: Allopurinol 300 MG TAB PO SCH (10:00)
[2022-02-03] MEDS: guaiFENesin ER 600 MG TAB PO SCH ×2 (10:00→21:10)
[2022-02-03] MEDS: valACYclovir 500 MG TAB PO SCH (10:00)
[2022-02-03] MEDS: Loperamide HCl 2 MG CAP PO PRN (22:39)
[2022-02-03] MEDS: Morphine 2 MG/ML VIAL SLOW IVP PRN (22:39)
[2022-02-04] MEDS: Morphine 2 MG/ML VIAL SLOW IVP PRN ×2 (04:35→11:09)
[2022-02-04] MEDS: Dextrose 10% in Water 1,000 ML IV SCH (05:12)
[2022-02-04] MEDS: guaiFENesin ER 600 MG TAB PO SCH ×2 (08:57→20:52)
[2022-02-04] MEDS: valACYclovir 500 MG TAB PO SCH (08:57)
[2022-02-04] MEDS: Allopurinol 300 MG TAB PO SCH (08:57)
[2022-02-04] MEDS: Benzonatate 100 MG CAP PO SCH ×3 (08:57→20:52)
[2022-02-04] MEDS ORDERED: Naloxone HCl 0.4 mg/ml Vial ONE (11:15)
[2022-02-04] MEDS ORDERED: Naloxone HCl 0.4 mg/ml Vial IV SCH (11:30)
[2022-02-04] MEDS: Ondansetron PF 4 MG/2 ML Vial IVP PRN (23:29)
[2022-02-05 07:46] LABS: #Lymphocytes 0.3 thou/uL (1.20-3.40); #Monocytes 0.2 thou/uL (0.11-0.59); #Neutrophils 6.7 thou/uL (1.40-6.50); %Basophils 0.5 % (0.0-1.0); %Lymphocytes 3.5 % (21.0-51.0); %Monocytes 3.1 % (0.0-10.0); %Neutrophils 92.9 % (42.0-75.0); Hemoglobin 9.3 g/dL (14.0-18.0); Mean Corpuscular HGB CONC 31.7 g/dL (32.0-36.0); Mean Corpuscular Hemoglobin 33.8 pg (27.0-31.0); Mean Platelet Volume 9.3 fL (7.4-10.4); Platelet Count 115 thou/uL (130-400); RBC Distribution Width 18.5 % (11.5-14.5); Red Blood Cell (RBC) Count 2.74 mill/uL (4.70-6.10); White Blood Cell (WBC) Count 7.2 thou/uL (4.8-10.8)
[2022-02-05 08:05] LABS: ALT (SGPT) 17 U/L (8-55); AST (SGOT) 29 U/L (5-34); Albumin 1.5 g/dL (3.4-4.8); Alkaline Phosphatase 64 U/L (40-110); Anion Gap 13 mmol/L (10-20); BUN (Urea Nitrogen) 27 mg/dL (8.4-25.7); Bilirubin, Total 0.6 mg/dL (0.2-1.2); Calc. Creatinine Clearance 88 mL/min (70-130); Calcium 8.3 mg/dL (7.8-10.44); Carbon Dioxide 29 mmol/L (23-31); Chloride 94 mmol/L (98-107); Estimated GFR 106; Globulin 8.2 g/dL (2.4-3.5); Glucose 70 mg/dL (80-115); Protein, Total 9.7 g/dL (5.8-8.1); Sodium 132 mmol/L (136-145)
[2022-02-05] MEDS: Allopurinol 300 MG TAB PO SCH (12:34)
[2022-02-05] MEDS: guaiFENesin ER 600 MG TAB PO SCH ×2 (12:35→21:20)
[2022-02-05] MEDS: Benzonatate 100 MG CAP PO SCH ×3 (12:35→21:20)
[2022-02-05] MEDS: valACYclovir 500 MG TAB PO SCH (12:35)
[2022-02-05] MEDS: Ondansetron PF 4 MG/2 ML Vial IVP PRN (23:48)
[2022-02-06] MEDS: Allopurinol 300 MG TAB PO SCH ×2 (09:31→09:40)
[2022-02-06] MEDS: guaiFENesin ER 600 MG TAB PO SCH ×3 (09:32→21:00)
[2022-02-06] MEDS: Benzonatate 100 MG CAP PO SCH ×4 (09:32→21:00)
[2022-02-06] MEDS: Megestrol Acetate 40 MG TAB PO SCH (21:00)
[2022-02-07] MEDS: guaiFENesin ER 600 MG TAB PO SCH ×2 (09:13→20:26)
[2022-02-07] MEDS: Allopurinol 300 MG TAB PO SCH (09:13)
[2022-02-07] MEDS: Megestrol Acetate 40 MG TAB PO SCH ×2 (09:13→20:26)
[2022-02-07] MEDS: Benzonatate 100 MG CAP PO SCH ×3 (09:13→20:25)
[2022-02-07] MEDS: Multivitamins, Adult 10 ML, Folic Acid 1 MG, Thiamine HCl 100 MG in Dextrose 5 %-0.45 %... IV SCH (19:55)
[2022-02-08] MEDS ORDERED: Morphine 2 MG/ML VIAL SLOW IVP SCH (01:23)
[2022-02-08] MEDS: Allopurinol 300 MG TAB PO SCH (13:22)
[2022-02-08] MEDS: Benzonatate 100 MG CAP PO SCH ×3 (13:23→22:59)
[2022-02-08] MEDS: guaiFENesin ER 600 MG TAB PO SCH ×2 (13:24→22:59)
[2022-02-08] MEDS: Megestrol Acetate 40 MG TAB PO SCH ×2 (13:25→22:59)
[2022-02-08] MEDS: Multivitamins, Adult 10 ML, Folic Acid 1 MG, Thiamine HCl 100 MG in Dextrose 5 %-0.45 %... IV SCH (19:02)
[2022-02-08] MEDS ORDERED: Ketorolac Tromethamine 30 MG/ML VIAL IVP PRN (19:54)
[2022-02-08 20:00] VITALS: TEMP 97.4
[2022-02-08] MEDS ORDERED: Scopolamine 1.5 mg/72 hour Patch TD SCH (20:00)
[2022-02-09 08:34] VITALS: BP 156/80
[2022-02-09] MEDS: Benzonatate 100 MG CAP PO SCH ×3 (09:21→17:31)
[2022-02-09] MEDS: Megestrol Acetate 40 MG TAB PO SCH ×2 (09:21→09:49)
[2022-02-09] MEDS: guaiFENesin ER 600 MG TAB PO SCH ×2 (09:21→09:48)
[2022-02-09] MEDS: Allopurinol 300 MG TAB PO SCH (09:21)
[2022-02-11 17:41] LABS: EliA Celiac New Method **** NEW METHOD ****
== END 2022-02-09 18:47 | DRG 840 ==
LOC: ERS 17:14 → 2NO 21:32 → MSONC 01-25 21:37
PROVIDERS: ADMIT Student in an Organized Health Care Education/Training Program; ATTEND Internal Medicine
PROC: 0BBL3ZX Excision of Left Lung, Percutaneous Approach, Diagnostic (ICD-10-PCS; principal; 2022-01-23)
PROC: 07DR3ZX Extraction of Iliac Bone Marrow, Percutaneous Approach, Diagnostic (ICD-10-PCS; 2022-01-26)
PROC: 079T3ZX Drainage of Bone Marrow, Percutaneous Approach, Diagnostic (ICD-10-PCS; 2022-01-26)
DX: C85.10 Unspecified B-cell lymphoma, unspecified site (principal); A41.9 Sepsis, unspecified organism; G93.41 Metabolic encephalopathy; E43 Unspecified severe protein-calorie malnutrition; N39.0 Urinary tract infection, site not specified; N13.30 Unspecified hydronephrosis; D61.818 Other pancytopenia; R64 Cachexia; C90.00 Multiple myeloma not having achieved remission; J98.11 Atelectasis; J91.0 Malignant pleural effusion; Z68.1 Body mass index [BMI] 19.9 or less, adult; E86.0 Dehydration; D64.9 Anemia, unspecified; I73.9 Peripheral vascular disease, unspecified; N13.5 Crossing vessel and stricture of ureter without hydronephrosis; D69.9 Hemorrhagic condition, unspecified; Z20.822 Contact with and (suspected) exposure to COVID-19
CPT/HCPCS: 32408; 36415; 36416; 38222; 70450; 71045; 71275; 74177; 76705; 76999; 77002; 77012; 77075; 80053; 80061; 80202; 80306; 80307; 81003; 81015; 82232; 82274; 82553; 82570; 82607; 82746; 82805; 83036; 83516; 83605; 83615; 83630; 83690; 83735; 83880; 83883; 83930; 83935; 84100; 84156; 84165; 84166; 84300; 84425; 84443; 84484; 84550; 85025; 85060; 85097; 85240; 85245; 85246; 85247; 85610; 85730; 85810; 86140; 86334; 86335; 86480; 86606; 86635; 86780; 86850; 86900; 86901; 87040; 87081; 87086; 87149; 87324; 87389; 87449; 87505; 87804; 87899; 88184; 88185; 88237; 88264; 88280; 88305; 88311; 88313; 88323; 88333; 88341; 88342; 88360; 88365; 93005; 93306; 93923; 93970; 94640; 96365; 96367; J0692; J1100; J2060; J2250; J2270; J2310; J2405; J3010; J3370; J3411; J3430; J3490; J7042; J7050; J7620; J8540; J9041; J9070; Q9967; S0179; U0003; U0005